=== PATIENT | female | born 1965 | race African-American/Black ===

== ENCOUNTER 2020-01-03 10:24 | Emergency (ER) | payer OTHER ==
[~2020-01-03] VITALS: Ht 177.8 cm; Wt 112.9 kg
[2020-01-03 10:30] VITALS: BP 157/102
--- NOTE | 2020-01-03 10:35 | NUR ---
ED Nurse Note: pt. aaox4. ambulatory. pt. walked in to er from home. per pt. she thinks she has been having fever x 3 days but no fever at triage and congestion since last night. dr. vallejo assessing pt.
[2020-01-03] MEDS ORDERED: HYDROCHLOROTH12.5 MG ORAL (10:39)
[2020-01-03] MEDS ORDERED: METFORMIN HCL500 M1 ORAL (10:39)
[2020-01-03] MEDS ORDERED: NORVASC10 MG ORAL (10:39)
[2020-01-03] MEDS ORDERED: LOSARTAN POTAS100 MG ORAL (10:39)
--- NOTE | 2020-01-03 10:39 | Emergency Room Report ---
History of Present Illness General Chief Complaint: Flu Like Symptoms Source: Patient Present Illness HPI 54-year-old female history of smoking history of hypertension history of diabetes presents with cough, congestion, fever x1 day, no chest pain no shortness of breath patient is a smoker patient presents for evaluation no aggravating relieving factors severity is mild, constant Allergies: Coded Allergies: No Known Allergies (Unverified , 01/03/20) COVID-19 Screening Contact w/high risk pt: No Recent Travel to affected area: No Experienced COVID-19 symptoms?: Yes COVID-19 symptoms experienced: Fever (T>100.4F or >38C), Flu-Like Symptoms Patient History Past Medical History: see triage record Reviewed Nursing Documentation: PMH: Agreed; PSxH: Agreed Nursing Documentation-PMH Hx Diabetes: Yes - arthritis Review of Systems All Other Systems: negative except mentioned in HPI Physical Exam Vital Signs Date Time Temp Pulse Resp B/P (MAP) Pulse Ox O2 Delivery O2 Flow Rate FiO2 01/03/20 10:30 97.7 98 20 157/102 (120) 100 Room Air Sp02 EP Interpretation: reviewed, normal General Appearance: well appearing, no apparent distress, alert Head: normocephalic, atraumatic Eyes: bilateral eye PERRL, bilateral eye EOMI ENT: uvula midline, moist mucus membranes, nasal congestion Neck: supple, thyroid normal, supple/symm/no masses Respiratory: lungs clear, no respiratory distress, no retraction, no accessory muscle use Cardiovascular #1: normal peripheral pulses, regular rate, rhythm, no edema, no gallop, no murmur Gastrointestinal: non tender, soft, no guarding, no rebound Musculoskeletal: normal inspection Neurologic: alert, oriented x3 Psychiatric: mood/affect normal Skin: no rash, warm/dry Medical Decision Making Diagnostic Impression: Primary Impression: Viral syndrome ER Course 54-year-old female presents with cough, congestion, differential diagnosis includes covid, viral syndrome, upper respiratory infection Disposition Home with return precautions Last Vital Signs Date Time Temp Pulse Resp B/P (MAP) Pulse Ox O2 Delivery O2 Flow Rate FiO2 01/03/20 10:30 97.7 98 20 157/102 100 Room Air Disposition: HOME, SELF-CARE Condition: Stable Scripts Guaifenesin/Dextromethorphan* (Guaifenesin Dm Syrup*) 5 Ml Syrup 10 ML ORAL Q8H PRN for For Cough, #118 ML Prov: Sanjeev Camara MD 01/03/20 Prednisone* (PREDNISONE*) 50 Mg Tablet 50 MG ORAL DAILY, #5 TAB 0 Refills Prov: Sanjeev Camara MD 01/03/20 Albuterol Sulfate* (ALBUTEROL SULFATE MDI*) 8.5 Gm Hfa.aer.ad 2 PUFF INH Q4H PRN for Shortness of Breath, #1 EA 0 Refills Prov: Sanjeev Camara MD 01/03/20 Referrals: [facility] Patient Instructions: Upper Respiratory Infection, Adult, [id number] Additional Instructions: The patient was provided with discharge instructions, notified to follow-up with a primary care doctor and or specialist in the next 24-48 hours, and to return to the ED if they have worsening of their symptoms. Please note that this report is being documented using DRAGON technology. This can lead to erroneous entry secondary to incorrect interpretation by the dictating instrument. Please self isolate for 14 days until symptoms resolve. Please practice social isolation. Strongly recommend proper hand hygiene. Sanjeev Camara MD Jan 03, 2020 10:39
[2020-01-03] MEDS ORDERED: GUAIFENESIN DM118 M1 ORAL (10:42)
[2020-01-03] MEDS ORDERED: ALBUTEROL SULF8.5 GM INH (10:42)
[2020-01-03] MEDS ORDERED: PREDNISONE50 MG ORAL (10:42)
[2020-01-03 10:49] VITALS: BP 154/98
--- NOTE | 2020-01-03 10:49 | NUR ---
ER DISCHARGE NOTE: Patient is cleared to be discharged per ERMD, pt is aox4, on room air, with stable vital signs. pt was given dc and prescription instructions, pt was able to verbalize understanding, pt id band removed. pt is able to ambulate with steady gait. pt took all belongings.
== END 2020-01-03 10:49 | disposition home or self-care (01) ==
LOC: EMR 10:37
DX: B34.9 Viral infection, unspecified (principal); R05 Cough; R50.9 Fever, unspecified; M19.90 Unspecified osteoarthritis, unspecified site
CPT/HCPCS: 99282

== ENCOUNTER 2020-03-15 12:30 | Emergency (ER) | payer OTHER ==
[~2020-03-15] VITALS: Ht 175.3 cm; Wt 122.5 kg
[~2020-03-15 12:30] MED LIST: ALBUTEROL SULF8.5 GM INH; GUAIFENESIN DM118 M1 ORAL; HYDROCHLOROTH12.5 MG ORAL; LOSARTAN POTAS100 MG ORAL; METFORMIN HCL500 M1 ORAL; NORVASC10 MG ORAL; PREDNISONE50 MG ORAL
[2020-03-15 12:49] VITALS: BP 131/84
--- NOTE | 2020-03-15 12:50 | NUR ---
ED Nurse Note: Patient walked into ED from home c/o left lower flank pain non radiating for 1 week. Patient denies any injury, denies dysuria, nausea, vomiting. Patient AAO x4, VSS at this time.
[2020-03-15] MEDS ORDERED: Ketorolac 30mg Inj IV ONE (13:30)
[2020-03-15 13:56] LABS: BASOPHILS % (AUTO) 0.9 % (0.0-2.0); EOSINOPHILS % (AUTO) 0.7 % (0.0-3.0); HEMATOCRIT 40.1 % (37.0-47.0); LYMPHOCYTES % (AUTO) 19.5 % (20.0-45.0); MEAN CORPUSCULAR VOLUME 86 FL (80-99); MONOCYTES % (AUTO) 5.9 % (1.0-10.0); NEUTROPHILS % (AUTO) 73.1 % (45.0-75.0); PLATELET COUNT 280 K/UL (150-450); RED BLOOD COUNT 4.68 M/UL (4.20-5.40); RED CELL DISTRIBUTION WIDTH 12.2 % (11.6-14.8)
[2020-03-15 14:00] LABS: APPEARANCE,URINE CLEAR; BILIRUBIN, URINE NEGATIVE (NEGATIVE); COLOR,URINE PALE YELLOW; GLUCOSE, URINE (UA) NEGATIVE (NEGATIVE); KETONES,URINE NEGATIVE (NEGATIVE); LEUKOCYTE ESTERASE ,URINE 1+ (NEGATIVE); NITRITE,URINE NEGATIVE (NEGATIVE); PH,URINE 5 (4.5-8.0); PROTEIN,URINE NEGATIVE (NEGATIVE); UROBILINOGEN,URINE NORMAL MG/DL (0.0-1.0)
[2020-03-15 14:30] LABS: ANION GAP 7 mmol/L (5-15); BLOOD UREA NITROGEN 14 mg/dL (7-18); CALCIUM 9.4 MG/DL (8.5-10.1); CARBON DIOXIDE 30 MMOL/L (21-32); CHLORIDE 102 MMOL/L (98-107); CREATININE 1.1 MG/DL (0.55-1.30); POTASSIUM 3.9 MMOL/L (3.5-5.1); SODIUM 139 MMOL/L (136-145)
[2020-03-15 14:35] LABS: ALANINE AMINOTRANSFERASE 37 U/L (12-78); ALBUMIN 4.1 G/DL (3.4-5.0); ALKALINE PHOSPHATASE 77 U/L (46-116); ASPARTATE AMINO TRANSFERASE 26 U/L (15-37); BILIRUBIN,TOTAL 0.4 MG/DL (0.2-1.0)
--- NOTE | 2020-03-15 14:35 | Emergency Room Report ---
History of Present Illness General Chief Complaint: Pain Source: Patient Present Illness HPI 55-year-old female with history of hypertension, type 2 diabetes currently taking medication and degenerative disc disease in lumbar region, morbidly obese here complaining of 1 week of left flank pain as well as left upper quadrant abdominal pain which is not sure which one is radiating to which side. Rates the pain 10 out of 10 at this time. Has not taken medication for symptom relief. Complains of nausea and acid reflux. Reports the pain is worse when laying down however feels better when sitting up. Denies diarrhea constipation. Reports that she is currently on a cleanse diet and eats a lot of vegetables. Denies any blood in stool. Denies any cough and congestion, chest pain, shortness of breath. Denies any urinary symptoms or vaginal discharge. Is afebrile and vital signs are otherwise within normal limits. Denies . Patient reports that she is a daily tobacco smoker and drinks alcohol every now and then however used to eat spicy acidic food which she has stopped in the past several weeks. Allergies: Coded Allergies: No Known Allergies (Unverified , 01/03/20) COVID-19 Screening Contact w/high risk pt: No Recent Travel to affected area: No Experienced COVID-19 symptoms?: No COVID-19 symptoms experienced: Fever (T>100.4F or >38C), Flu-Like Symptoms COVID-19 Testing performed M[employer]: No Patient History Past Medical History: see triage record Past Surgical History: none Pertinent Family History: none Social History: Reports: smoking Now: No Immunizations: UTD Reviewed Nursing Documentation: PMH: Agreed; PSxH: Agreed Nursing Documentation-PMH Past Medical History: No History, Except For Hx Hypertension: Yes Hx Diabetes: Yes - arthritis Review of Systems All Other Systems: negative except mentioned in HPI Physical Exam Vital Signs Date Time Temp Pulse Resp B/P (MAP) Pulse Ox O2 Delivery O2 Flow Rate FiO2 03/15/20 12:37 98.6 88 17 131/84 (100) 98 Room Air Sp02 EP Interpretation: reviewed, normal General Appearance: no apparent distress, alert, GCS 15, non-toxic Head: normocephalic, atraumatic Eyes: bilateral eye normal inspection, bilateral eye PERRL ENT: hearing grossly normal, normal pharynx, no angioedema, normal voice Neck: full range of motion, supple/symm/no masses Respiratory: chest non-tender, lungs clear, normal breath sounds, speaking full sentences Cardiovascular #1: regular rate, rhythm, no edema Gastrointestinal: normal bowel sounds, non tender, soft, no mass, no peritonitis, non-distended, no guarding, no hernia, no pulsatile mass, no rebound Rectal: deferred Genitourinary: no CVA tenderness Musculoskeletal: back normal, normal range of motion, no calf tenderness, pelvis stable, gait/station normal, no lower extremity edema, non-tender Neurologic: alert, motor strength/tone normal, oriented x3, sensory intact, responsive, speech normal Psychiatric: judgement/insight normal, memory normal, mood/affect normal, no suicidal/homicidal ideation Skin: no rash Lymphatic: no adenopathy Medical Decision Making PA Attestation All my diagnosis and treatment plans were reviewed ad discussed with my supervising physician Dr. Almanza Diagnostic Impression: Primary Impression: Gastritis Additional Impressions: Muscle strain UTI (urinary tract infection) ER Course 55-year-old female with history of hypertension, type 2 diabetes currently taking medication and degenerative disc disease in lumbar region, morbidly obese here complaining of 1 week of left flank pain as well as left upper quadrant abdominal pain which is not sure which one is radiating to which side. Rates the pain 10 out of 10 at this time. Has not taken medication for symptom relief. Complains of nausea and acid reflux. Reports the pain is worse when laying down however feels better when sitting up. Denies diarrhea constipation. Reports that she is currently on a cleanse diet and eats a lot of vegetables. Denies any blood in stool. Denies any cough and congestion, chest pain, shortness of breath. Denies any urinary symptoms or vaginal discharge. Is afebrile and vital signs are otherwise within normal limits. Denies . Patient reports that she is a daily tobacco smoker and drinks alcohol every now and then however used to eat spicy acidic food which she has stopped in the past several weeks. Ddx considered but are not limited to: Gastritis, muscle strain, UTI, pyelonephritis, gastric ulcer Vital signs: are WNL, pt. is afebrile H&PE are most consistent with: Gastritis, muscle strain, UTI ORDERS: CBC, CMP, UA, PT and PTT, omeprazole, Zofran, Tylenol, Robaxin ED INTERVENTIONS: NS bolus, Toradol, Zofran, Pepcid DISCHARGE: At this time pt. is stable for d/c to home. Will provide printed patient care instructions, and any necessary prescriptions. Care plan and follow up instructions have been discussed with the patient prior to discharge. No indication for abdominal CT scan at this time as this is more muscle strain and gastritis type pain patient is nontender to palpation and blood work within normal limits. Patient has a very minor UTI which does not indicate pyelonephritis. Patient does not even have UTI symptoms. Advised patient to follow primary doctor for referral to silk washing machine operator for endoscopy as gastritis is very much likely with the possibility of gastric ulcer. If worsening symptoms return to the emergency room. Also refrain from tobacco smoke and spicy acidic food. Last Vital Signs Date Time Temp Pulse Resp B/P (MAP) Pulse Ox O2 Delivery O2 Flow Rate FiO2 03/15/20 12:49 98.6 17 131/84 98 Room Air 03/15/20 12:37 88 Disposition: HOME, SELF-CARE Condition: Stable Scripts Acetaminophen* (TYLENOL EXTRA STRENGTH*) 500 Mg Tablet 500 MG ORAL Q8H PRN for Prn Headache/Temp > 101, #30 TAB 0 Refills Prov: PatriciamogBrandy leal PA 03/15/20 Cephalexin* (KEFLEX*) 500 Mg Capsule 500 MG ORAL EVERY 12 HOURS for 7 Days, #14 CAP 0 Refills Prov: PatriciamogCari lealal PA 03/15/20 Omeprazole (OMEPRAZOLE) 40 Mg Capsule.dr 40 MG ORAL DAILY, #30 CAP Prov: MannyelimoghaBrandy willingham PA 03/15/20 Ondansetron (Zofran) 4 Mg Tablet 4 MG ORAL Q6H PRN for Nausea & Vomiting, #14 TAB Prov: PatriciamogCari lealal PA 03/15/20 Methocarbamol* (ROBAXIN-500*) 500 Mg Tablet 500 MG ORAL TID PRN for For Pain, #15 TAB 0 Refills Prov: PatriciamogBrandy leal PA 03/15/20 Referrals: NON PHYSICIAN (PCP) Patient Instructions: Gastritis, Adult, [id number], Muscle Strain Additional Instructions: Take medication as directed, follow with your primary care provider, increase oral hydration, avoid eating spicy acidic foods. You need to follow-up with your primary doctor for referral to silk washing machine operator for possible endoscopy. If worsening symptoms return to the emergency room Brandy Valencia Mar 15, 2020 14:35
[2020-03-15] MEDS ORDERED: IBUPROFEN600 M1 ORAL (14:36)
[2020-03-15] MEDS ORDERED: OMEPRAZOLE40 M1 ORAL (14:36)
[2020-03-15] MEDS ORDERED: ZOFRAN4 M1 ORAL (14:36)
[2020-03-15] MEDS ORDERED: ROBAXIN-500MG ORAL (14:36)
[2020-03-15] MEDS ORDERED: CEPHALEXIN500 MG ORAL (14:38)
[2020-03-15] MEDS ORDERED: TYLENOL EXTRA500 MG ORAL (14:44)
[2020-03-15 14:53] VITALS: BP 131/84
--- NOTE | 2020-03-15 14:53 | NUR ---
ER DISCHARGE NOTE: Patient is cleared to be discharged per ERMD, pt is aox4, on room air, with stable vital signs. pt was given dc and prescription instructions, pt was able to verbalize understanding, pt id band and iv site removed without complications. pt is able to ambulate with steady gait. pt took all belongings.
== END 2020-03-15 14:54 | disposition home or self-care (01) ==
LOC: EMR 13:30
DX: K29.70 Gastritis, unspecified, without bleeding (principal); N39.0 Urinary tract infection, site not specified; T14.8XXA Other injury of unspecified body region, initial encounter; M51.36 Other intervertebral disc degeneration, lumbar region; E11.9 Type 2 diabetes mellitus without complications; I10 Essential (primary) hypertension; R50.9 Fever, unspecified; F17.200 Nicotine dependence, unspecified, uncomplicated; M19.90 Unspecified osteoarthritis, unspecified site
CPT/HCPCS: 36415; 80053; 81003; 81025; 85025; 85610; 85730; 96374; 96375; J1885; J2405; S0028; Z7502; 99284